=== PATIENT | male | born 1970 | race Two or more races ===

== ENCOUNTER 2019-07-04 08:46 | Inpatient (IN) | payer SELFPAY ==
[2019-07-04] VITALS (14 sets, daily range): BP systolic 78–136; BP diastolic 47–85; BMI 28.1
[~2019-07-04] VITALS: Ht 157.5 cm; Wt 63.5 kg
--- NOTE | ~2019-07-04 | HEMODYNAMI ---
PATIENT:FRANCISCO RICHARDSON MEDICAL RECORD: [id number] : 66 LOCATION:[facility] D.2301 ADMISSION DATE: 07/04/19 Generatedon:07/05/201916:18 Patient name: FRANCISCO RICHARDSON Patient #: [id number] SSN: DO B: 1970 Date of study: 07/05/2019 Page: Of Hemodynamic Procedure Report Patient Data Patient Demographics Procedure consent was obtained First Name: FRANCISCO Gender: Male Last Name: DEBRA : 1970 Patient #: [id number] Age: 48 year(s) Race: Other Additional ID: [id number] Contact details Address: [address] [place] [address] [address] State: [place] City: [place] Zip code: [address] Past Medical History Allergies: No known allergies Admission Admission Data Admission Date: 07/04/2019 Admission Time: 15:26 Room #: D.2301 Height (in.): 62 BSA: 1.71 (m2) Height (cm.): 157.48 BMI: 27.98 (kg/m2) Weight (lbs.): 153 Weight (kg.): 69.4 Procedure Procedure Types Cath Procedure Peripheral Cath Diagnostic Procedure Water Analyst Peripheral Procedures Fistula Mechanical Thrombectomy with Plasty Procedure Description Procedure Date Procedure Date: 07/05/2019 Procedure Start Time: 14:01 Procedure Staff Name Function Yuli Deleon RT Procurement Services Manager Candice Foster RN Nurse Inessa Bertrand MD Performing Physician CRISELDA DUKES RT Scrub Ignacio Olivier CRNA Additional personnel Jovany Garcia RT Monitor Procedure Data Cath Procedure Fluoroscopy Diagnostic fluoroscopy Total fluoroscopy Time: time: 18.2 min 18.2 min Diagnostic fluoroscopy Total fluoroscopy dose: 104 dose: 104 mGy mGy Diagnostic catheters Device Type Used For End Catheter Placement Merit Impress KA 2 5Fr 40CM catheter ([id number]) Procedure Medications Medication Administration Route Dosage Heparin Flush Bag added to field 2 bags (1000units/500ml NS) Lidocaine 1% added to field 20 Heparin Bolus I.V. 5000 units TPA 10 mg Heparin Bolus I.V. 2000 units Heparin Bolus I.V. 1000 units Hemodynamics Rest BSA: 1.71 (m2) O2 Consumption: Estimated: 206.16 (ml/min) O2 Consumption indexed : Estimated:120.56 (ml/min/m) Heart Rate: 73 (bpm) Snapshots Pre Cath Intra NCS Post Cath Vital Signs Time Heart Resp SPO2 etCO2 NIBP (mmHg) Rhythm Pain Sedation Rate (ipm) (%) (mmHg) Status Level (bpm) 13:55:16 71 9 100 37.5 96/48(68) NSR 0 (11) 10(A) , No pain 13:59:27 68 9 99 39.8 78/39(54) NSR 0 (11) 10(A) , No pain 14:03:31 67 9 100 48 79/36(55) NSR 0 (11) 10(A) , No pain 14:07:35 68 10 100 45 70/33(49) NSR 0 (11) 10(A) , No pain 14:11:36 69 9 99 39.8 72/33(50) NSR 0 (11) 10(A) , No pain 14:15:38 73 9 99 36 70/35(49) NSR 0 (11) 10(A) , No pain 14:17:21 78 9 100 33 75/37(53) NSR 0 (11) 10(A) , No pain 14:21:22 84 10 99 32.3 87/45(65) NSR 0 (11) 10(A) , No pain 14:25:26 86 11 100 32.3 89/49(64) NSR 0 (11) 10(A) , No pain 14:29:30 88 10 99 33 98/57(78) NSR 0 (11) 10(A) , No pain 14:33:38 88 8 99 39 101/51(75) NSR 0 (11) 10(A) , No pain 14:37:41 90 9 99 40.5 104/56(78) NSR 0 (11) 10(A) , No pain 14:41:43 92 15 85 26.2 105/82(101) NSR 0 (11) 10(A) , No pain 14:45:53 86 13 100 39.8 109/53(79) NSR 0 (11) 10(A) , No pain 14:50:05 86 16 96 1.5 112/50(82) NSR 0 (11) 10(A) , No pain 14:54:21 86 13 82 48.7 94/41(67) NSR 0 (11) 10(A) , No pain 14:58:31 88 12 94 48 88/42(68) NSR 0 (11) 10(A) , No pain 15:03:20 55 11 79 38.2 67/28(44) NSR 0 (11) 10(A) , No pain 15:04:31 48 1 68 36 44/27(38) NSR 0 (11) 10(A) , No pain 15:06:26 50 16 74 0 64/26(35) NSR 0 (11) 10(A) , No pain 15:07:28 70 13 100 46.5 62/30(47) NSR 0 (11) 10(A) , No pain 15:09:53 100 10 93 3.7 112/48(72) NSR 0 (11) 10(A) , No pain 15:13:14 101 10 100 11.2 121/51(86) NSR 0 (11) 10(A) , No pain 15:17:26 94 10 100 9.7 124/58(84) NSR 0 (11) 10(A) , No pain 15:21:38 91 9 100 8.2 122/62(95) NSR 0 (11) 10(A) , No pain 15:25:47 90 9 100 8.2 124/68(100) NSR 0 (11) 10(A) , No pain 15:28:09 90 8 99 7.5 124/65(96) NSR 0 (11) 10(A) , No pain 15:32:21 91 12 98 30 133/69(101) NSR 0 (11) 10(A) , No pain 15:36:34 90 11 98 30.7 137/69(99) NSR 0 (11) 10(A) , No pain 15:40:51 91 9 98 24 145/71(106) NSR 0 (11) 10(A) , No pain 15:45:07 91 9 99 28.5 141/75(104) NSR 0 (11) 10(A) , No pain 15:49:23 91 10 79 27.7 140/75(102) NSR 0 (11) 10(A) , No pain 15:53:39 91 10 97 32.2 149/72(119) NSR 0 (11) 10(A) , No pain 15:57:59 91 11 99 33 137/69(95) NSR 0 (11) 10(A) , No pain 16:02:13 91 10 97 33.7 144/72(105) NSR 0 (11) 10(A) , No pain 16:06:31 91 12 99 29.2 145/67(102) NSR 0 (11) 10(A) , No pain 16:10:49 91 11 98 30 143/69(94) NSR 0 (11) 10(A) , No pain 16:15:07 92 11 98 30.7 147/66(123) NSR 0 (11) 10(A) , No pain Medications Time Medication Route Dose Verified Delivered Reason Notes Eff ectiveness by by 13:50:30 Heparin Flush added 2 M J Jerzy Bertrand used for Bag to bags MD WEBER procedure (1000units/500ml field NS) 13:50:42 Lidocaine 1% added 20ml M J Jerzy Bertrand for local to vial MD WEBER anesthetic field 14:02:39 Heparin Bolus I.V. 5000 M J Long Candice Per units MD Cristian STEWART physician 14:13:07 TPA fistula 10mg M J Jerzy Bertrand MD, MD 14:44:52 Heparin Bolus I.V. 2000 M J Long Candice Per units MD Cristian STEWART physician 15:16:48 Heparin Bolus I.V. 1000 M J Long Candice Per units MD Cristian STEWART physician Procedure Log Time Note 11:59:12 Patient Height : 62 inches 12:00:41 Patient Weight : 153 lbs 12:02:42 Use device set IR Diagnostic 12:02:55 St Shekhar 6FR 5cm sheath opened to sterile field. 12:02:57 Tegaderm 4 x 4 (1626W) opened to sterile field. 12:02:58 Sterile Angiographic Pack opened to sterile field. 12:02:59 Bag Decanter (2002S) opened to sterile field. 12:03:12 Micropuncture VSI 4FR kit opened to sterile field. 12:03:25 DOC .035 wire (D37805) opened to sterile field. 13:12:06 - 13:50:30 Heparin Flush Bag (1000units/500ml NS) 2 bags added to field was administered by Inessa Bertrand MD; used for procedure; Verbal order read back and verified. 13:50:42 Lidocaine 1% 20ml vial added to field was administered by Inessa Bertrand MD; for local anesthetic; Verbal order read back and verified. 13:53:19 Time tracking: Regular hours (M-F 7:00 - 5:00) 13:53:27 Plan of Care:Hemodynamics will remain stable., Cardiac rhythm will remain stable., Comfort level will be maintained., Respiratory function will remain adequate., Patient/ family verbilizes understanding of procedure., Procedure tolerated without complication., Recovers from procedure without complications.. 13:53:50 Patient received from ICU to IR Alert and oriented. Tansferred to table in Supine position. 13:54:02 Signed procedure consent form obtained from patient. 13:54:07 ECG and BP/O2 sat monitors applied to patient. 13:54:08 Vital chart was started 13:54:09 Baseline sample Acquired. 13:54:11 Full Disclosure recording started 13:54:12 - 13:54:18 H&P Date Dictated: 07/05/2019 Within 30 days and on chart.. 13:54:22 Pre-procedure instructions explained to patient. 13:54:27 Family unavailable. 13:54:30 Patient NPO since Midnight. 13:54:38 Patient allergic to No known allergies 13:54:42 Is the patient allergic to Iodine/contrast media? No. 13:54:45 Patient diabetic? Yes. 13:54:49 If diabetic: On Metformin? No 13:54:52 - 13:54:53 ----Pre-sedation anethsthesia assessment.----see anesthesia notes for monitoring of patient during procedure 13:55:23 - 13:55:32 Left Arm area was prepped with chlora-prep and draped in sterile fashio n 13:55:33 - 13:55:40 5) <15 or on dialysis Very severe, or end stage kidney failure. 14:00:07 Physician arrived 14:00:08 --------ALL STOP TIME OUT------ 14:00:09 Final Timeout: patient, procedure, and site verified with staff and physician. All members of the team are in agreement. 14:01:09 Procedure started. 14:01:15 Local anesthetic to left arm with Lidocaine 1% by Inessa Bertrand MD.INITIAL ACCESS ONLY 14:01:40 Venous access obtained using ultrasound guidance. 14:02:39 Heparin Bolus 5000 units I.V. was administered by Candice Foster RN; Per physician; Verbal order read back and verified. 14:05:18 GLIDE WIRE ANGLE 180cm ([id number]) opened to sterile field. 14:08:13 A Merit Impress KA 2 5Fr 40CM catheter ([id number]) was advanced over the wire and used for . 14:13:07 TPA 10mg fistula was administered by Inessa Bertrand MD; ; Verbal order read back and verified. 14:15:55 St Shekhar 6FR 5cm sheath opened to sterile field. 14:44:52 Heparin Bolus 2000 units I.V. was administered by Candice Foster RN; Per physician; Verbal order read back and verified. 14:54:51 INFLATOR BasixTOUCH (EZ5909) opened to sterile field. 14:54:57 Angiojet PROXI 6Fr 90CM thrombectomy catheter opened to sterile field. 14:55:04 BILL 260 wire (C48846) opened to sterile field. 15:06:16 GLIDE CATHETER 5FR ANGLED 65cm (CG507) opened to sterile field. 15:08:24 Inflate balloon Inflation number: 1 A Evercross 6 x 4 x 135 Balloon ([id number]) was prepped and advanced across the Undefined1 , then inflated to 8 CHRIS for 0:04 (min:sec) . 15:13:13 Omar 5Fr OTW embolectomy catheter opened to sterile field. 15:16:48 Heparin Bolus 1000 units I.V. was administered by Candice Foster RN; Per physician; Verbal order read back and verified. 15:26:58 Procedure ended.(Physican Out) 15:27:16 Fluoroscopy time 18.20 minutes. 15:27:25 Fluoroscopy dose: 104 mGy 15:27:25 Flurop Dose total: 104 15:27:29 Sharps counted by scrub and verified by R.N. 15:27:40 Insertion/operative site no bleeding no hematoma. 15:27:45 Post-op/insertion site Left Fistula dressed using a 4 x 4 and Tegaderm. 16:15:23 SEE ANESTHESIA NOTE FOR POST PROCEDURE TIVA 16:15:47 Report given to ICU. 16:15:50 Patient transfered to ICU with Bed. 16:16:23 Full Disclosure recording stopped Intervention Summary Intervention Notes Time ActionType Lesion and Equipment Used Action# Pressure Duration Attributes 15:08:24 Inflate Undefined1 Evercross 6 x 4 1 8 00:04 balloon x 135 Balloon ([id number]) Device Usage Item Name Manufacture Quantity Catalog Number Hospital Part Current M inimal Lot# / Charge Number Stock Stock Serial# Code St Shekhar 6FR 5cm St Shekhar 2 [id number] 393738 741040 5 [id number] sheath [id number] Tegaderm 4 x 4 3M 1 1626W 638177 905948 496505 5 (1626W) Sterile Cardinal 1 [id number] 274012 289300 5 Angiographic Health Pack Bag Decanter Microtek 1 2001S 080601 21616 953878 5 () Medical Inc. Micropuncture VSI VASCULAR 1 7266V 592961 076913 5 VSI 4FR kit SOLUTIONS DOC .035 wire Cook Medical 1 [id number] 813965 362452 5 ([id number]) GLIDE WIRE Terumo 1 CH4980 088099 102092 649629 5 ANGLE 180cm (DH5094) Merit Impress Merit 1 [id number] 729981 378763 5 KA 2 5Fr 40CM Medical catheter (82065NP7) INFLATOR Merit 1 MT4962 624368 827451 333163 5 [id number] [facility] ([id number]) Angiojet PROXI [place] 1 855371-001 068958 325566 023945 5 6Fr 90CM Scientific thrombectomy catheter BILL 260 wire Cook Medical 1 D71774 594976 19981 263351 5 ([id number]) GLIDE CATHETER Terumo 1 CG507 094929 374204 5 5FR ANGLED 65cm (CG507) Evercross 6 x 4 Medtronic 1 [id number] 332796 824991 450161 5 x 135 Balloon ([id number]) Omar 5Fr OTW Rogers 1 [id number] 824814 554432 630947 5 embolectomy Lifesciences catheter Signature Audit [place] Stage Time Signature Unsigned Intra-Procedure 07/05/2019 Jovany 4:17:59 PM Shuffield RT (R) (CV) [facility] [address] [place] [address]
--- NOTE | ~2019-07-04 | HEMODYNAMI ---
PATIENT:FRANCISCO RICHARDSON MEDICAL RECORD: [id number] : 66 LOCATION:[facility].2106 ADMISSION DATE: 07/04/19 Generatedon:07/04/201915:34 Patient name: FRANCISCO RICHARDSON Patient #: [id number] SSN: DO B: 1970 Date of study: 07/04/2019 Page: Of Hemodynamic Procedure Report Patient Data Patient Demographics Procedure consent was obtained First Name: FRANCISCO Gender: Male Last Name: DEBRA : 1970 Patient #: [id number] Age: 48 year(s) Race: Other Additional ID: [id number] Contact details Address: [address] [place] [address] [address] State: [place] City: [place] Zip code: [address] Past Medical History Allergies: No known allergies Admission Admission Data Admission Date: 07/04/2019 Admission Time: 12:03 Room #: 2106 Procedure Procedure Types Cath Procedure Peripheral Cath Diagnostic Procedure Fistula Thrombectomy AV with Plasty Procedure Description Procedure Date Procedure Date: 07/04/2019 Procedure Start Time: 14:23 Procedure End Time: 15:33 Procedure Staff Name Function Bipin Kim MD Performing Physician CRISELDA DUKES RT Monitor Jovany Garcia RT Scrub Audra Wallis RN Nurse Procedure Data Cath Procedure Fluoroscopy Diagnostic fluoroscopy Total fluoroscopy Time: 8.4 time: 8.4 min min Contrast Material Contrast Material Type Amount (ml) Isovue 300 60 Entry Location Entry Primary Successful Side Size Upsize Upsize Entry Closure Succes sful Closure Location (Fr) 1 (Fr) 2 (Fr) Remarks Device Remarks Fistula Left 6 Fr Short Procedure Medications Medication Administration Route Dosage Versed 1 mg Fentanyl I.V. 50 mcg Lidocaine 1% Heparin Flush Bag 2 bags (1000units/500ml NS) Versed I.V. 1 mg Fentanyl I.V. 50 mcg Heparin Bolus I.V. 5000 units Benadryl I.V. 50 mg Fentanyl I.V. 25 mcg Versed I.V. 1 mg Fentanyl I.V. 25 mcg Romazicon I.V. mg Hemodynamics Rest Heart Rate: 68 (bpm) Snapshots Pre Cath Intra NCS Post Cath Vital Signs Time Heart Resp SPO2 etCO2 NIBP (mmHg) Rhythm Pain Sedation Rate (ipm) (%) (mmHg) Status Level (bpm) 13:56:34 67 13 99 36.7 129/72(104) NSR 0 (11) 10(A) , No pain 14:00:50 67 15 99 35.9 130/74(93) NSR 0 (11) 10(A) , No pain 14:05:06 67 20 98 35.2 140/70(111) NSR 0 (11) 10(A) , No pain 14:09:24 68 16 99 36.7 137/71(114) NSR 0 (11) 10(A) , No pain 14:13:38 67 11 99 35.9 130/72(107) NSR 0 (11) 10(A) , No pain 14:18:29 66 11 100 28.4 138/71(99) NSR 0 (11) 10(A) , No pain 14:22:45 65 8 99 38.1 128/71(107) NSR 0 (11) 8(A) , No pain 14:26:59 71 7 94 37.4 117/69(83) NSR 0 (11) 8(A) , No pain 14:31:09 69 6 100 20.9 107/74(86) NSR 0 (11) 8(A) , No pain 14:35:19 79 7 100 38.9 104/60(97) NSR 0 (11) 8(A) , No pain 14:39:24 69 5 98 39.6 113/67(79) NSR 0 (11) 8(A) , No pain 14:43:34 69 8 100 38.1 109/68(95) NSR 0 (11) 8(A) , No pain 14:47:40 68 5 98 35.1 117/72(107) NSR 0 (11) 8(A) , No pain 14:52:39 66 3 64 0.7 Measuring NSR 0 (11) 8(A) , No pain 14:52:49 65 4 0.7 83/46(74) NSR 0 (11) 8(A) , No pain 14:57:48 19 8.2 Measuring NSR 0 (11) 8(A) , No pain 14:57:56 14 13.4 91/61(81) NSR 0 (11) 8(A) , No pain 15:02:47 74 13 100 0 134/70(112) NSR 0 (11) 8(A) , No pain 15:07:13 93 24 71 0.7 Disturbed NSR 0 (11) 8(A) , No pain 15:11:48 76 12 100 2.2 147/64(75) NSR 0 (11) 8(A) , No pain 15:16:06 75 12 99 0 133/82(95) NSR 0 (11) 8(A) , No pain 15:21:05 0 Measuring NSR 0 (11) 8(A) , No pain 15:21:11 0 135/69(93) NSR 0 (11) 8(A) , No pain 15:25:11 0 No Cuff NSR 0 (11) 8(A) , No pain 15:29:02 0 No Cuff NSR 0 (11) 8(A) , No pain 15:33:02 0 No Cuff NSR 0 (11) 8(A) , No pain Medications Time Medication Route Dose Verified Delivered Reason Notes Effec tiveness by by 14:19:11 Versed 1 mg Bipin Zhu used for Bimal Kim RN procedure 14:19:27 Fentanyl I.V. 50 Bipin Zhu used for mcg Bimal Kim RN procedure 14:19:48 Lidocaine 1% Bipin Voss used for Judy Kim MD procedure 14:20:10 Heparin Flush 2 Bipin Voss used for Bag bags Judy Kim MD procedure (1000units/500ml NS) 14:26:55 Versed I.V. 1 mg Bipin Voss used for Judy Kim MD procedure 14:27:09 Fentanyl I.V. 50 Bipin Voss used for mcg Judy Kim MD procedure 14:31:36 Heparin Bolus I.V. 5000 Bipin Voss used for units Judy Kim MD procedure 14:35:16 Benadryl I.V. 50 mg Bipin Voss Per Judy Kim MD physician 14:45:02 Fentanyl I.V. 25 Bipin Voss used for mcg Judy Kim MD procedure 14:48:40 Versed I.V. 1 mg Bipin Voss used for Judy Kim MD procedure 14:48:48 Fentanyl I.V. 25 Bipin Voss used for mcg Judy Kim MD procedure 15:04:37 Romazicon I.V. mg uJdy Dangelo MD MD Procedure Log Time Note 13:16:10 Use device set IR Diagnostic 13:16:11 Bag Decanter (2002S) opened to sterile field. 13:16:12 Sterile Angiographic Pack opened to sterile field. 13:16:12 Tegaderm 4 x 4 (1626W) opened to sterile field. 13:16:23 DOC .035 wire (R02932) opened to sterile field. 13:16:40 MICROPUNCTURE 4FR Cook (B49700) opened to sterile field. 13:16:55 - 13:22:48 Jovany Garcia RT (R) (CV) sent for patient. Start room use. 13:22:51 Time tracking: Regular hours (M-F 7:00 - 5:00) 13:22:58 Plan of Care:Hemodynamics will remain stable., Cardiac rhythm will remain stable., Comfort level will be maintained., Respiratory function will remain adequate., Patient/ family verbilizes understanding of procedure., Procedure tolerated without complication., Recovers from procedure without complications.. 13:23:04 Patient received from ED to IR Alert and oriented. Tansferred to table in Supine position. 13:23:11 Signed procedure consent form obtained from patient. 13:23:13 Warm blankets applied, and suzi hugger turned on for patient comfort. 13:23:14 Correct patient and procedure confirmed by team. 13:23:16 ECG and BP/O2 sat monitors applied to patient. 13:23:17 - 13:23:23 H&P Date Dictated: 07/04/2019 ER History on chart.. 13:23:38 Unable to provide pre-op teaching due to educational barrier. non portuguese speaking 13:23:42 Family in waiting room. 13:23:55 Patient allergic to No known allergies 13:23:58 Is the patient allergic to Iodine/contrast media? No. 13:24:03 Patient diabetic? Yes. 13:24:07 - 13:24:10 ----Pre-sedation anethsthesia assessment.---- 13:24:14 Previous problem with sedation/anesthesia? No ? 13:24:16 Snore? No 13:24:20 Sleep apnea? No 13:24:22 Deviated septum? No 13:24:23 Opens mouth fully? Yes 13:24:25 Sticks out tongue? Yes 13:24:28 Airway obstruction? No ? 13:24:33 Dentures? No ? 13:24:35 - 13:25:33 IV patent on arrival in right forearm 13:25:56 Left Arm was prepped with chlora-prep and draped in sterile fashion. ::57 Alarms reviewed by Hernandez Cleary 13::57 Sharps counted by scrub and verified by Leyla 13:25:59 - 13:55:24 Vital chart was started :55:25 Baseline sample Acquired. :: Full Disclosure recording started 13:55:35 - 14::12 Physician arrived 14:12:12 --------ALL STOP TIME OUT------ 14:12:13 Final Timeout: patient, procedure, and site verified with staff and physician. All members of the team are in agreement. 14:15:34 Left Arm site verified by team. 14:15:42 Procedure started. 14:19:11 Versed 1 mg was administered by Audra Wallis RN; used for procedure; Verbal order read back and verified. 14::27 Fentanyl 50 mcg I.V. was administered by Audra Wallis RN; used for procedure; Verbal order read back and verified. 14:19:48 Lidocaine 1% was administered by Bipin Kim MD; used for procedure; Verbal order read back and verified. 14:20:10 Heparin Flush Bag (1000units/500ml NS) 2 bags was administered by Bipin Kim MD; used for procedure; Verbal order read back and verified. 14:23:08 Local anesthetic to left arm with Lidocaine 1% by Bipin Kim MD.INITIAL ACCESS ONLY 14:23:09 Access obtained with 4Fr micropunture. 14:23:22 A 6 Fr Short sheath was inserted into the Left Fistula 14::14 St Shekhar 6FR 5cm sheath opened to sterile field. 14::14 GLIDE WIRE ANGLE 180cm (FF7623) opened to sterile field. 14::55 Versed 1 mg I.V. was administered by Bipin Kim MD; used for procedure ; Verbal order read back and verified. 14:27:09 Fentanyl 50 mcg I.V. was administered by Bipin Kim MD; used for procedure; Verbal order read back and verified. 14:31:03 BILL 260 wire (N38041) opened to sterile field. 14:31:04 INFLATOR BasixTOUCH (LN1765) opened to sterile field. 14:31:36 Heparin Bolus 5000 units I.V. was administered by Bipin Kim MD; used for procedure; Verbal order read back and verified. 14:31:56 Inflate balloon Inflation number: 1 A Evercross 6 x 6 x 135 Balloon ([id number]) was prepped and advanced across the left fistula, then inflated. 14:34:36 GLIDE CATHETER 5FR ANGLED 65cm (CG507) opened to sterile field. 14:35:16 Benadryl 50 mg I.V. was administered by Bipin Kim MD; Per physician; Verbal order read back and verified. 14:41:18 Arrow 6Fr TREROTOLA thrombectomy opened to sterile field. 14:45:02 Fentanyl 25 mcg I.V. was administered by Bipin Kim MD; used for procedure; Verbal order read back and verified. 14:48:40 Versed 1 mg I.V. was administered by Bipin Kim MD; used for procedure ; Verbal order read back and verified. 14:48:48 Fentanyl 25 mcg I.V. was administered by Bipin Kim MD; used for procedure; Verbal order read back and verified. 15:04:37 Romazicon mg I.V. was administered by Bipin Kim MD; ; Verbal order read back and verified. 15:17:20 Procedure ended.(Physican Out) 15:21:53 Contrast amount:Isovue 300 60ml. 15:21:55 Sharps counted by scrub and verified by R.N. 15:21:57 Insertion/operative site no bleeding no hematoma. 15:22:02 Post-op/insertion site Left Fistula dressed using a 4 x 4 and Tegaderm. 15:22:14 Patient needs reinforcement of post procedure teaching. 15:22:16 Procedure and supply charges have been captured, reviewed, submitted an d are correct. 15:32:14 Fluoroscopy time 08.40 minutes. 15:32:18 Dose Area Product 262 mGy/cm. 15:32:50 Post left arm:stable, soft, clean and dry 15:33:24 Vital chart was stopped 15:33:28 Report given to ICU. 15:33:38 Patient transfered to ICU with Bed. 15:33:39 Procedure ended. 15:33:39 Full Disclosure recording stopped Intervention Summary Intervention Notes Time ActionType Lesion and Equipment Used Action# Pressure Duration Attributes 14:31:56 Inflate Undefined1 Evercross 6 x 6 1 0 00:00 balloon x 135 Balloon ([id number]) Device Usage Item Name Manufacture Quantity Catalog Number Hospital Part Current M inimal Lot# / Charge Number Stock Stock Serial# Code Bag Decanter Microtek 1 [id number] 14754 793090 5 () Medical Inc. Sterile Cardinal 1 [id number] 490316 060392 5 Angiographic Health Pack Tegaderm 4 x 4 3M 1 1626W 174115 514495 895676 5 (1626W) DOC .035 wire Cook Medical 1 G01186 230775 500778 5 (L20063) MICROPUNCTURE Cook Medical 1 S52025 424290 198385 312749 5 4FR Cook (J78741) St Shekhar 6FR 5cm St Shekhar 1 801000 023967 177021 5 [id number] sheath GLIDE WIRE Terumo 1 HD7691 554172 169223 873703 5 ANGLE 180cm (BM4997) BILL 260 wire Cook Medical 1 Z77339 547251 17955 277108 5 (G72345) INFLATOR Merit 1 CQ4280 917009 872119 267223 5 BasixTOUCH Medical (FQ2176) Evercross 6 x 6 Medtronic 1 [id number] 227066 284197 5 x 135 Balloon ([id number]) GLIDE CATHETER Terumo 1 CG507 572267 346706 5 5FR ANGLED 65cm (CG507) Arrow 6Fr Teleflex 1 [id number] 821369 947927 277612 5 TREROTOLA thrombectomy Signature Audit [place] Stage Time Signature Unsigned Intra-Procedure 07/04/2019 CRISELDA DUKES RT 3:34:43 PM (R) [place] [id number] [place] [id number]
[2019-07-04 09:45] LABS: BASOPHILS 0.1 % (0-2); EOSINOPHILS 5.7 % (0-7); HEMATOCRIT 32.5 % (42.0-54.0); HEMOGLOBIN 10.4 g/dL (13.5-17.5); IMMATURE GRANULOCYTES 0.3 % (0-5); LYMPHOCYTES 27.6 % (15-50); MCH 30.5 pg (26.0-34.0); MCV 95.3 fL (80.0-100.0); MEAN PLATELET VOLUME 8.7 fL (7.4-10.4); NEUTROPHILS 56.3 % (40-80); PLATELET COUNT 203 10x3/uL (130-400); RBC 3.41 10x6/uL (4.20-6.10); RDW 14.5 % (11.5-14.5); WBC 6.7 10x3/uL (4.8-10.8)
[2019-07-04 09:48] LABS: ANION GAP 20.5 mmol/L (8-16); CALCIUM 8.4 mg/dL (8.5-10.1); CARBON DIOXIDE 21.5 mmol/L (21.0-32.0); CREATININE - SERUM 12.5 mg/dL (0.6-1.3)
[2019-07-04 09:49] LABS: APTT 32.1 SECONDS (22.8-39.4); INR 1.01 (0.85-1.17); PROTIME 13.2 SECONDS (11.6-15.0)
[2019-07-04 09:54] LABS: ALBUMIN 3.3 g/dL (3.4-5.0); BILIRUBIN - TOTAL 0.46 mg/dL (0.2-1.3); PHOSPHOROUS 5.8 mg/dL (2.5-4.9); PROTEIN - SERUM 9.2 g/dL (6.4-8.2)
--- NOTE | 2019-07-04 15:30 | NUR ---
PT ARRIVED TO UNIT ON BED. ON VENTI MASK AT 15L. ATTACHED TO ICU MONITOR. VSS. PT SPEAKS ONLY [place]. IS AWAKE. FOLLOWS COMMANDS. WILL CONTINUE TO MONITOR
--- NOTE | 2019-07-04 16:10 | NUR ---
SPOKE WITH PT SON AND . OBTAINED CONSENT FOR A TRIALYSIS CATHETER AND BLOOD TRANSFUSION IF NECESSARY. WILL CONTINUE TO MONITOR
--- NOTE | 2019-07-04 16:58 | NUR ---
DR ROWAN IN ROOM. PREPARING TO PLACE TRIALYSIS CATHETER. WILL CONTINUE TO MONITOR
--- NOTE | 2019-07-04 16:58 | NUR ---
DR JUNIOR CALLED. UPDATE GIVEN. WILL CONTINUE TO MONITOR
--- NOTE | 2019-07-04 19:00 | NUR ---
SUPINE IN BED. NURSE AT BEDSIDE, DIALYSIS IN PROGRESS. WILL CONTINUE TO MONITOR.
--- NOTE | 2019-07-04 21:35 | NUR ---
DIALYSIS NURSE STATED SHE FINISHED DIALYSIS EARLY DUE TO LOW BP AND LOW RESPIRATIONS. VS CURRENTLY STABLE. SPO2 100% ON 8L. PT ALERT AND ORIENTED. GOWN SOILED WITH BLOOD. CHANGED. NO FURTHER NEEDS VOICED AT THIS TIME. CL IN REACH, BED IN LOW POSISTION, WILL CONTINUE TO MONITOR.
[2019-07-05] VITALS (22 sets, daily range): BP systolic 80–142; BP diastolic 47–91
--- NOTE | 2019-07-05 | NUR ---
UP WITH STANDBY ASSIST TO BSC. PT DOES NOT MAKE EYE CONTACT AND FEELS FOR OBJECTS WITHOUT LOOKING DIRECTLY AT THEM. ASKED PT IF HE IS ABLE TO SEE. PT REPLIED, "WHAT?" REPLIED, "OJOS?" PT RESPONDED, "NO, NOT GOOD."
--- NOTE | 2019-07-05 01:29 | NUR ---
SUPINE IN BED, SPONTANEOUS EYE OPENING UPON VERBAL STIMULATION. VS STABLE. NO NEEDS VOICED AT THIS TIME, WILL CONTINUE TO MONITOR.
--- NOTE | 2019-07-05 03:00 | NUR ---
SUPINE IN BED, RESPIRATIONS EVEN/NONLABORED. VS STABLE, CTM.
[2019-07-05 04:29] LABS: BASOPHILS 0.5 % (0-2); EOSINOPHILS 3.3 % (0-7); HEMATOCRIT 31.5 % (42.0-54.0); HEMOGLOBIN 9.9 g/dL (13.5-17.5); IMMATURE GRANULOCYTES 0.2 % (0-5); LYMPHOCYTES 25.7 % (15-50); MCH 30.3 pg (26.0-34.0); MCHC 31.4 g/dL (31.0-37.0); MCV 96.3 fL (80.0-100.0); MEAN PLATELET VOLUME 9.1 fL (7.4-10.4); MONOCYTES 8.7 % (2-11); NEUTROPHILS 61.6 % (40-80); PLATELET COUNT 186 10x3/uL (130-400); RBC 3.27 10x6/uL (4.20-6.10); RDW 14.7 % (11.5-14.5); WBC 6.5 10x3/uL (4.8-10.8)
[2019-07-05 04:45] LABS: ALBUMIN 3.1 g/dL (3.4-5.0); ANION GAP 19.5 mmol/L (8-16); BILIRUBIN - TOTAL 0.45 mg/dL (0.2-1.3); CALCIUM 7.9 mg/dL (8.5-10.1); CARBON DIOXIDE 21.9 mmol/L (21.0-32.0); CREATININE - SERUM 10.6 mg/dL (0.6-1.3); POTASSIUM - SERUM 5.4 mmol/L (3.5-5.1); PROTEIN - SERUM 8.7 g/dL (6.4-8.2)
--- NOTE | 2019-07-05 05:00 | NUR ---
SUPINE IN BED, CHEST RISE NOTED, RESPIRATIONS EVEN/NONLABORED. VS STABLE, NO S/SX OF DISTRESS, CONTINUE TO MONITOR.
--- NOTE | 2019-07-05 06:30 | NUR ---
I have reviewed this patient and I concur with the Shift Assessment completed by the Licensed Practical Nurse today this shift.
--- NOTE | 2019-07-05 07:00 | NUR ---
PT REPORT RECEIVED FROM COB SAWYER NURSE. NO ACUTE SIGNS OF DISTRESS NOTED. SHIFT ASSESSMENT COMPLETED. NO COMPLAINTS AT THIS TIME. ASSISTED TO BEDSIDE COMMODE. SMALL BM. ASSISTED BACK TO BED. WILL CONTINUE TO MONITOR
--- NOTE | 2019-07-05 08:50 | NUR ---
PT RESTING IN BED. PULSE OX DROPPED TO MID 80'S. WOKE PT UP AND PLACED NC AT 4L. O2 SATS REBOUNDED TO 96%.
--- NOTE | 2019-07-05 09:17 | OP ---
PATIENT NAME: FRANCISCO RICHARDSON MEDICAL RECORD: [id number] :66 LOCATION:[facility] D.2301 ADMISSION DATE:07/04/19 SURGEON: CHAUNCEY ROWAN MD DATE OF OPERATION: 07/04/2019 SURGEON: Chauncey Rowan MD PREOPERATIVE DIAGNOSES: End-stage renal disease, clotted left upper extremity AV fistula, hyperkalemia, and hyperphosphatemia. POSTOPERATIVE DIAGNOSES: End-stage renal disease, clotted left upper extremity AV fistula, hyperkalemia, and hyperphosphatemia. PROCEDURE PERFORMED: 1. Attempted ultrasound-guided right internal jugular venous access 2. Ultrasound-guided right femoral vein central venous access. ANESTHESIA: Local. COMPLICATIONS: None. SPECIMENS: None. Case was clean. OPERATIVE COURSE: After verbal consent was obtained, the right neck was prepped and draped in typical sterile fashion. Time was taken to confirm the correct patient and procedure. The ultrasound was used to identify the right internal jugular vein and common carotid artery. The vein was cannulated under ultrasound guidance. The vein was quite small on ultrasound that was cannulated with adequate blood return. A wire was attempted to be passed. The wire would not thread beyond 10-15 cm. The wire was removed. An 0.035 Glidewire was placed and the catheter advanced. Again, the Glidewire met significant resistance around approximately 10 cm. The jugular vein was cannulated 2 additional times under ultrasound guidance, both subsequent attempts were positive for blood return with inability to thread the wire beyond 8-10 cm due to significant stenosis or stricture. At this time, we decided to abandon the procedure in the right neck. The right groin was prepped and draped in typical sterile fashion. The right femoral vein and right femoral were identified. Again, noted femoral vein was very small in diameter. It was cannulated. Local anesthetic was again injected at this time in the right groin. Under ultrasound guidance, the right femoral vein was cannulated, blood was aspirated. A wire was placed in a standard Seldinger fashion and advanced. The needle was removed. Skin incision was made with 11-blade scalpel. The tract was serially dilated using the dilators and the Trialysis kit. After the tract was dilated, a 13-Libyan catheter was placed over the wire in a standard Seldinger fashion. All 3 ports were aspirated with blood and flushed with normal saline. A Biopatch was placed. The catheter was secured to the skin using 3-0 nylon suture and a sterile Tegaderm dressing. At the end of procedure, all needle and instrument counts were correct. No complications occurred. The patient tolerated the procedure well. TRANSINT:[id number] Voice Confirmation ID: [id number] DOCUMENT ID: [id number] OPERATIVE REPORT [id number] FRANCISCO RICHARDSON,CHAUNCEY Charles MD at 0917 CC: [id number] DICTATION DATE: 07/04/191821 MEASURER MACHINE: 07/04/192127 ADM IN [facility] [address] [id number]
--- NOTE | 2019-07-05 10:50 | NUR ---
DR MCKEON IN ROOM. UPDATE GIVEN. WILL CONTINUE TO MONITOR
--- NOTE | 2019-07-05 13:33 | NUR ---
SPECIALS IN ROOM. WHEELED PT OUT TO PERFORM PROCEDURE.
--- NOTE | 2019-07-05 16:53 | NUR ---
SPOKE WITH [employer]INA NEPHROLOGY CONSTRUCTION PIT WORKER. SHE STATED THAT IF THE FISTULA IS OPEN TO GO AHEAD AND DO DIAYLYSIS THROUGH IT. WILL NOTIFY DIALYSIS NURSE THAT THAT IS THE PLAN. WILL CONTINUE TO MONITOR
--- NOTE | 2019-07-05 18:00 | NUR ---
ARRIVED TO UNIT AT THIS TIME. ALERT AND ORIENTED. ON ROOM AIR. CONNECTED TO PIPER HELPER. DENIES ANY NEEDS AT THIS TIME.
--- NOTE | 2019-07-05 18:13 | MORECARE ---
CASE MANAGEMENT DISCHARGE SUMMARY PATIENT: FRANCISCO RICHARDSON UNIT: [id number] ADM DATE: 07/04/19 AGE: 48 : 66 SEX: M ROOM/BED: D.2301 AUTHOR: LALITA KEYES PHYSICIAN: REFERRING PHYSICIAN: QUITA MCKEON MD DATE OF SERVICE: 07/05/19 Discharge Plan Patient Name: FRANCISCO RICHARDSON Facility: [facility]:[place] : 1970 Planned Disposition: Anticipated Discharge Date: Discharge Date: Expected LOS: Initial Reviewer: [email or web address] Initial Review Date: 07/04/2019 Generated: 07/05/19 7:12 pm DCP- Discharge Planning Updated by [email or web address]: Nancy Gregory on 07/04/19 3:[address] HD @[facility] Jordan Barron. Patient Name: FRANCISCO RICHARDSON Page 85283 at 1813 All edits/amendments must be made on the electronic document DICTATION DATE: 07/05/191811 LABORATORY INSPECTOR: JESUS 07/05/191811 RPT#: [id number] DC DATE: STATUS: ADM IN [facility] [address] [place] [address] END OF REPORT
--- NOTE | 2019-07-05 18:15 | NUR ---
GAVE REPORT TO CASEY IN CVICU. TRANSFERRED PT UP TO CV.
--- NOTE | 2019-07-05 18:19 | MORECARE ---
CASE MANAGEMENT DISCHARGE SUMMARY PATIENT: FRANCISCO RICHARDSON UNIT: [id number] ADM DATE: 07/04/19 AGE: 48 : 66 SEX: M ROOM/BED: D.2301 AUTHOR: LALITA KEYES PHYSICIAN: REFERRING PHYSICIAN: QUITA MCKEON MD DATE OF SERVICE: 07/05/19 Discharge Plan Patient Name: FRANCISCO RICHARDSON Facility: [facility]:[place] : 1970 Planned Disposition: Anticipated Discharge Date: Discharge Date: Expected LOS: Initial Reviewer: [email or web address] Initial Review Date: 07/04/2019 Generated: 07/05/19 7:19 pm Comments DCP- Discharge Planning Updated by [email or web address]: Emilia Bright on 07/05/19 5:[address] CM was unable to met with patient for discharge planning d/t him being in procedure / surgery. CM will continue to follow and assist as needed with discharge planning / needs. DCP- Discharge Planning Updated by [email or web address]: Nancy Gregory on 07/04/19 3:[address] HD @[facility], Sat. DCPIA - Discharge Planning Initial Assessment Updated by [email or web address]: Emilia Bright on 07/05/19 6:14 pm * Is the patient Alert and Oriented? Yes * How many steps to enter\exit or inside your home? Last DP export: 07/05/19 5:13 p Patient Name: FRANCISCO RICHARDSON Page 42902 at 1819 All edits/amendments must be made on the electronic document DICTATION DATE: 07/05/191818 PARTS SALES MANAGER: JESUS 07/05/191818 RPT#: [id number] DC DATE: STATUS: ADM IN [facility] [address] [place] [address] END OF REPORT
--- NOTE | 2019-07-05 19:00 | NUR ---
REPORT RECEIVED FROM THE OFF GOING RN. PT CURRENTLY GETTING DIALYSIS AND TOLERATING WELL. PT SPEAK VERY LITTLE TO NO [place]. ABLE TO COMMUNICATE VIA TRANSLATION PHONE. PT BLIND. PT DENIES PAIN AT THIS TIME. VSS. CALL LIGHT IN REACH. WILL CONT POC.
--- NOTE | 2019-07-05 23:00 | NUR ---
DIALYSIS COMPLETED. DIALYSIS NURSE STATED THAT SHE REMOVED ABOUT 1L FROM THE PT. WILL CONT POC.
[2019-07-06] VITALS (10 sets, daily range): BP systolic 94–126; BP diastolic 37–58; Ht 157.5 cm; Wt 63.5 kg
--- NOTE | 2019-07-06 00:26 | NUR ---
PT REQUESTED SIRISHA (BATHROOM). EXPLAINED, USING GOOGLE TRANSLATION, THAT HE HAD TO USE A BEDPAN BECAUSE OF THE CENTRAL LINE IN HIS GROIN AND HE WAS COMPLIANT. PT DID NOT USE THE BATHROOM BUT STATED THAT HE WAS OK NOW. PT EXPELLED GAS. CALL LIGHT IN REACH. WILL CONT POC.
--- NOTE | 2019-07-06 03:15 | NUR ---
pt given a bed bath and full linen change. pt tolerated well. vss. call light in reach. will cont poc.
--- NOTE | 2019-07-06 05:17 | NUR ---
TRIALYSIS LINE FLUSHES WELL BUT UNABLE TO ASPIRATE BLOOD. BLOOD SAMPLE TAKEN FROM THE RIGHT AC IV. FLUSHES WELL AND ASPIRATES WELL. IV FLUSHED AND SL. WILL CONT POC.
[2019-07-06 05:28] LABS: BASOPHILS 0.6 % (0-2); EOSINOPHILS 3.1 % (0-7); HEMOGLOBIN 8.4 g/dL (13.5-17.5); IMMATURE GRANULOCYTES 0.2 % (0-5); LYMPHOCYTES 21.7 % (15-50); MCH 29.9 pg (26.0-34.0); MCHC 31.1 g/dL (31.0-37.0); MCV 96.1 fL (80.0-100.0); MEAN PLATELET VOLUME 9.1 fL (7.4-10.4); MONOCYTES 13.3 % (2-11); NEUTROPHILS 61.1 % (40-80); PLATELET COUNT 162 10x3/uL (130-400); RBC 2.81 10x6/uL (4.20-6.10); RDW 14.5 % (11.5-14.5); WBC 5.1 10x3/uL (4.8-10.8)
[2019-07-06 05:59] LABS: ALBUMIN 2.8 g/dL (3.4-5.0); BILIRUBIN - TOTAL 0.47 mg/dL (0.2-1.3); CALCIUM 7.9 mg/dL (8.5-10.1); PHOSPHOROUS 5.6 mg/dL (2.5-4.9)
[2019-07-06 06:19] LABS: MAGNESIUM - SERUM 2.2 mg/dL (1.8-2.4)
[2019-07-06 06:20] LABS: ANION GAP 13.7 mmol/L (8-16); CARBON DIOXIDE 27.5 mmol/L (21.0-32.0); CREATININE - SERUM 6.3 mg/dL (0.6-1.3); POTASSIUM - SERUM 4.2 mmol/L (3.5-5.1)
--- NOTE | 2019-07-06 07:58 | NUR ---
DR. MCKEON AT BEDSIDE. OKAY TO SEND PT HOME.
--- NOTE | 2019-07-06 09:03 | NUR ---
TRIALYSIS CATH TO RIGHT GROIN DC'D AT THIS TIME PER ORDERS. PT WILL BE DISCHARGING HOME.
--- NOTE | 2019-07-06 09:26 | NUR ---
CALL PLACED TO FAMILY TO NOTIFY THAT PT IS BEING DISCHARGE. WILL CALL UNIT WHEN THEY ARRIVE TO ELECTRICAL WIRING LINEMAN PATIENT.
--- NOTE | 2019-07-06 10:23 | NUR ---
PT DISCHARGED. DISCHARGE INSTRUCTIONS REVIEWED WITH PATIENT AND SPOUSE. TRANSFERRED IN WHEELCHAIR TO PERSONAL VEHICLE. NO BELOGINS.
--- NOTE | 2019-07-06 18:33 | MORECARE ---
CASE MANAGEMENT DISCHARGE SUMMARY PATIENT: FRANCISCO RICHARDSON UNIT: [id number] ADM DATE: 07/04/19 AGE: 48 : 66 SEX: M ROOM/BED: [facility] AUTHOR: LALITA KEYES PHYSICIAN: REFERRING PHYSICIAN: QUITA MCKEON MD DATE OF SERVICE: 07/06/19 Discharge Plan Patient Name: FRANCISCO RICHARDSON Facility: [facility]:[place] : 1970 Planned Disposition: Anticipated Discharge Date: Discharge Date: 07/06/2019 Expected LOS: Initial Reviewer: [email or web address] Initial Review Date: 07/04/2019 Generated: 07/06/19 7:32 pm Comments DCP- Discharge Planning Updated by [email or web address]: Emilia Bright on 07/05/19 5:[address] CM was unable to met with patient for discharge planning d/t him being in procedure / surgery. CM will continue to follow and assist as needed with discharge planning / needs. DCP- Discharge Planning Updated by [email or web address]: Nancy Gregory on 07/04/19 3:[address] HD @[facility] [place] [facility], Sat. DCPIA - Discharge Planning Initial Assessment Updated by [email or web address]: Emilia Bright on 07/05/19 6:14 pm * Is the patient Alert and Oriented? Yes * How many steps to enter\exit or inside your home? Last DP export: 07/05/19 5:19 p Patient Name: FRANCISCO RICHARDSON Page 76220 at 1833 All edits/amendments must be made on the electronic document DICTATION DATE: 07/06/191831 CULTURAL ANTHROPOLOGY PROFESSOR: JESUS 07/06/191831 RPT#: [id number] DC DATE:07/06/19 STATUS: DIS IN [facility] [address] [place] [address] END OF REPORT
== END 2019-07-06 10:24 | disposition home or self-care (01) | DRG 252 ==
LOC: D.ER 08:46 → D.M2 12:03 → OBSVTIME 12:32 → D.ICU 15:26 → D.M2 15:26 → D.ICU 15:52 → D.CVICU 07-05 18:24
PROVIDERS: Emergency Medicine; General Practice; ADMIT Internal Medicine Nephrology; ATTEND Internal Medicine Nephrology
PROC: B51W1ZZ Fluoroscopy of Dialysis Shunt/Fistula using Low Osmolar Contrast (ICD-10-PCS; 2019-07-04)
PROC: 5A1D70Z Performance of Urinary Filtration, Intermittent, Less than 6 Hours Per Day (ICD-10-PCS; 2019-07-04)
PROC: 05CF3ZZ Extirpation of Matter from Left Cephalic Vein, Percutaneous Approach (ICD-10-PCS; principal; 2019-07-04 14:06)
PROC: 05CF3ZZ Extirpation of Matter from Left Cephalic Vein, Percutaneous Approach (ICD-10-PCS; 2019-07-05)
PROC: 05WY3KZ Revision of Nonautologous Tissue Substitute in Upper Vein, Percutaneous Approach (ICD-10-PCS; 2019-07-05)
PROC: 3E03317 Introduction of Other Thrombolytic into Peripheral Vein, Percutaneous Approach (ICD-10-PCS; 2019-07-05)
DX: T82.868A Thrombosis due to vascular prosthetic devices, implants and grafts, initial encounter (principal); N18.6 End stage renal disease; I12.0 Hypertensive chronic kidney disease with stage 5 chronic kidney disease or end stage renal disease; N25.81 Secondary hyperparathyroidism of renal origin; Y83.9 Surgical procedure, unspecified as the cause of abnormal reaction of the patient, or of later complication, without mention of misadventure at the time of the procedure; Z99.2 Dependence on renal dialysis; E87.5 Hyperkalemia

== ENCOUNTER 2019-07-19 07:45 | Inpatient (IN) | payer SELFPAY ==
[~2019-07-19] VITALS: Ht 157.5 cm; Wt 60.9 kg
[2019-07-19 08:06] VITALS: BP 147/71
[2019-07-19 08:39] LABS: BASOPHILS 0.5 % (0-2); EOSINOPHILS 7.5 % (0-7); HEMATOCRIT 30.2 % (42.0-54.0); HEMOGLOBIN 9.4 g/dL (13.5-17.5); IMMATURE GRANULOCYTES 0.1 % (0-5); LYMPHOCYTES 26.8 % (15-50); MCH 30.8 pg (26.0-34.0); MCHC 31.1 g/dL (31.0-37.0); MONOCYTES 11.5 % (2-11); NEUTROPHILS 53.6 % (40-80); RBC 3.05 10x6/uL (4.20-6.10); RDW 14.8 % (11.5-14.5); WBC 7.5 10x3/uL (4.8-10.8)
[2019-07-19 08:49] LABS: ANION GAP 21.3 mmol/L (8-16); CALCIUM 9.1 mg/dL (8.5-10.1); CARBON DIOXIDE 21.1 mmol/L (21.0-32.0); CREATININE - SERUM 9.2 mg/dL (0.6-1.3); POTASSIUM - SERUM 5.4 mmol/L (3.5-5.1)
[2019-07-19 08:55] LABS: ALBUMIN 3.5 g/dL (3.4-5.0); BILIRUBIN - TOTAL 0.51 mg/dL (0.2-1.3); MAGNESIUM - SERUM 2.6 mg/dL (1.8-2.4); PLATELET COUNT 301 10x3/uL (130-400); PROTEIN - SERUM 9.7 g/dL (6.4-8.2)
--- NOTE | 2019-07-19 09:08 | NUR ---
CALLED MED II TO GIVE REPORT. NURSE UNAVAILABLE AT THIS TIME.
[2019-07-19 09:28] VITALS: BP 142/65
[2019-07-19 10:30] LABS: INR 0.99 (0.85-1.17)
--- NOTE | 2019-07-19 10:56 | NUR ---
PT TO ROOM FROM ER. LEFT FISTULA NOT WORKING. CONSENTS FOR PROCEDURE SIGNED, EKG ON CHART. NPO FOR NOW.
[2019-07-19 11:28] VITALS: BP 109/51
[2019-07-19 13:28] VITALS: BP 127/97; BMI 24.4
--- NOTE | 2019-07-19 17:14 | NUR ---
PT TO ROOM FROM PACU ON BED. TO BATHROOM FOR BM ON ARRIVAL. AWAKE AND ALERT. DINNER TRAY ORDERED. HEMESPLIT DRESSING CLEAN AND DRY.
--- NOTE | 2019-07-19 19:37 | NUR ---
EVENING ROUNDS COMPLETE. PT LAYING IN BED. NO SIGNS OF DISTRESS. PT REQUEST FOR COFFEE, PROVIDED. PT DENIES ANY OTHER NEEDS AT THIS TIME, NO C/O PAIN. CL IN REACH, BED IN LOWEST POSITION.
[2019-07-19 21:44] VITALS: BP 98/41
[2019-07-20 00:15] VITALS: BP 120/55
[2019-07-20 05:08] VITALS: BP 111/58
[2019-07-20 06:39] LABS: BASOPHILS 0.3 % (0-2); EOSINOPHILS 5.6 % (0-7); HEMATOCRIT 25.1 % (42.0-54.0); HEMOGLOBIN 7.7 g/dL (13.5-17.5); IMMATURE GRANULOCYTES 0.2 % (0-5); LYMPHOCYTES 22.1 % (15-50); MCH 30.3 pg (26.0-34.0); MCHC 30.7 g/dL (31.0-37.0); MCV 98.8 fL (80.0-100.0); MEAN PLATELET VOLUME 8.6 fL (7.4-10.4); MONOCYTES 8.7 % (2-11); NEUTROPHILS 63.1 % (40-80); RBC 2.54 10x6/uL (4.20-6.10); WBC 6.6 10x3/uL (4.8-10.8)
[2019-07-20 06:44] LABS: PLATELET COUNT 229 10x3/uL (130-400)
[2019-07-20 06:57] LABS: ANION GAP 20.2 mmol/L (8-16); CALCIUM 7.9 mg/dL (8.5-10.1); CARBON DIOXIDE 19.5 mmol/L (21.0-32.0); CREATININE - SERUM 10.3 mg/dL (0.6-1.3); POTASSIUM - SERUM 5.7 mmol/L (3.5-5.1)
[2019-07-20 08:53] LABS: INR 1.06 (0.85-1.17); PROTIME 13.7 SECONDS (11.6-15.0)
--- NOTE | 2019-07-20 09:33 | MORECARE ---
CASE MANAGEMENT DISCHARGE SUMMARY PATIENT: FRANCISCO ARENAS UNIT: [id number] ADM DATE: 07/19/19 AGE: 48 : 66 SEX: M ROOM/BED: D.2138 AUTHOR: LALITA KEYES PHYSICIAN: REFERRING PHYSICIAN: KYLE GATICA MD DATE OF SERVICE: 07/20/19 Discharge Plan Patient Name: FRANCISCO ARENAS Facility: [facility]:[place] : 1970 Planned Disposition: Home Anticipated Discharge Date: 07/20/19 Discharge Date: Expected LOS: 1 Initial Reviewer: [email or web address] Initial Review Date: 07/19/2019 Generated: 07/20/19 10:32 am Comments DCP- Discharge Planning Updated by [email or web address]: Nancy Gregory on 07/20/19 8:[address] CM met with patient to discuss dc needs/plans. PCP: [facility]. Pharmacy: [facility]. Patient states he lives with his and children. States that he lost his vision 5 years ago. Patient requires assistance with bathing, dressing and medication management. DME: EVAN wahl, Nimesh. Emergency contact: Ino Nava (son) [phone], Bozena Nava (spouse) [phone]. Patient dialysis at Dialysis /. Transportation is via his family or a taxi. Denies need for HHS, Rehab or SNF. Patient has been hospitalized within past 30 days. Transportation home will be provided his son or . No other needs voiced. Patient Name: FRANCISCO ARENAS Page 74726 at 0933 All edits/amendments must be made on the electronic document DICTATION DATE: 07/20/19931 ROOFER HELPER: JESUS 07/20/19931 RPT#: [id number] DC DATE: STATUS: ADM IN [facility] [address] [place] [address] END OF REPORT
--- NOTE | 2019-07-20 09:52 | MORECARE ---
CASE MANAGEMENT DISCHARGE SUMMARY PATIENT: FRANCISCO ARENAS UNIT: [id number] ADM DATE: 07/19/19 AGE: 48 : 66 SEX: M ROOM/BED: D.2138 AUTHOR: LALITA KEYES PHYSICIAN: REFERRING PHYSICIAN: KYLE GATICA MD DATE OF SERVICE: 07/20/19 Discharge Plan Patient Name: FRANCISCO ARENAS Facility: [facility]:[place] : 1970 Planned Disposition: Home Anticipated Discharge Date: 07/20/19 Discharge Date: Expected LOS: 1 Initial Reviewer: [email or web address] Initial Review Date: 07/19/2019 Generated: 07/20/19 10:52 am Comments DCP- Discharge Planning Updated by [email or web address]: Nancy Gregory on 07/20/19 8:[address] CM met with patient to discuss dc needs/plans. PCP: [facility]. Pharmacy: [facility]. Patient states he lives with his and children. States that he lost his vision 5 years ago. Patient requires assistance with bathing, dressing and medication management. DME: EVAN wahl, Nimesh. Emergency contact: Ino Naav (son) [phone], Bozena Nava (spouse) [phone]. Patient dialysis at Dialysis /. Transportation is via his family or a taxi. Denies need for HHS, Rehab or SNF. Patient has been hospitalized within past 30 days. Transportation home will be provided his son or . No other needs voiced. Last DP export: 07/20/19 8:33 am Patient Name: FRANCISCO ARENAS Page 35460 at 0952 All edits/amendments must be made on the electronic document DICTATION DATE: 07/20/19951 EXECUTIVE SOUS CHEF: JESUS 07/20/19951 RPT#: [id number] DC DATE: STATUS: ADM IN [facility] [address] [place] [address] END OF REPORT
--- NOTE | 2019-07-20 09:59 | MORECARE ---
CASE MANAGEMENT DISCHARGE SUMMARY PATIENT: FRANCISCO ARENAS UNIT: [id number] ADM DATE: 07/19/19 AGE: 48 : 66 SEX: M ROOM/BED: D.8028 AUTHOR: STEPHY,DOC PHYSICIAN: REFERRING PHYSICIAN: KYLE GATICA MD DATE OF SERVICE: 07/20/19 Discharge Plan Patient Name: FRANCISCO ARENAS Facility: [facility]:[place] : 1970 Planned Disposition: Home Anticipated Discharge Date: 07/20/19 Discharge Date: Expected LOS: 1 Initial Reviewer: [email or web address] Initial Review Date: 07/19/2019 Generated: 07/20/19 10:58 am Comments DCP- Discharge Planning Updated by [email or web address]: Nancy Gregory on 07/20/19 8:[address] CM met with patient to discuss dc needs/plans. PCP: [facility]. Pharmacy: [facility]. Patient states he lives with his and children. States that he lost his vision 5 years ago. Patient requires assistance with bathing, dressing and medication management. DME: canpernell, BSC, Walker. Emergency contact: Ino Nava (son) [phone], Bozena Nava (spouse) [phone]. Patient dialysis at Dialysis /. Transportation is via his family or a taxi. Denies need for HHS, Rehab or SNF. Patient has been hospitalized within past 30 days. Transportation home will be provided his son or . No other needs voiced. DCPIA - Discharge Planning Initial Assessment Updated by [email or web address]: Nancy Gregory on 07/20/19 9:55 am * Is the patient Alert and Oriented? Yes * PCP [facility] * Pharmacy [facility] * Preadmission Environment Home with Family * ADLs Partial Dependent * Partial ADLs (Assistance needed) Ambulation Bathing Medication Management * Equipment Bedside Commode Cane Walker * Other Equipment NA * List name and contact numbers for known caregivers / representatives who currently or will assist patient after discharge: Ino Nava (son) [phone] Bozena Nava [phone] * Verbal permission to speak to the caregivers and representatives has been obtained from the patient. Yes * Community resources currently utilized None * Please name any agencies selected above. [facility] * Additional services required to return to the preadmission environment? No * Can the patient safely return to the preadmission environment? Yes * Has this patient been hospitalized within the prior 30 days at any hospital? Yes Last DP export: 07/20/19 8:52 am Patient Name: FRANCISCO ARENAS Page 00803 at 0959 All edits/amendments must be made on the electronic document DICTATION DATE: 07/20/19957 TWILL CUTTER: JESUS 07/20/19957 RPT#: [id number] DC DATE: STATUS: ADM IN [facility] [address] [place] [address] END OF REPORT
[2019-07-20 13:50] VITALS: Ht 157.5 cm; Wt 60.9 kg
[2019-07-20 16:00] VITALS: BP 146/65
--- NOTE | 2019-07-20 16:50 | MORECARE ---
CASE MANAGEMENT DISCHARGE SUMMARY PATIENT: FRANCISCO ARENAS UNIT: [id number] ADM DATE: 07/19/19 AGE: 48 : 66 SEX: M ROOM/BED: D.2138 AUTHOR: STEPHY,DOC PHYSICIAN: REFERRING PHYSICIAN: KYLE GATICA MD DATE OF SERVICE: 07/20/19 Discharge Plan Patient Name: FRANCISCO ARENAS Facility: [facility]:[place] : 1970 Planned Disposition: Home Anticipated Discharge Date: 07/20/19 Discharge Date: Expected LOS: 1 Initial Reviewer: [email or web address] Initial Review Date: 07/19/2019 Generated: 07/20/19 5:50 pm DCP- Discharge Planning Updated by [email or web address]: Nancy Gregory on 07/20/19 8:[address] CM met with patient to discuss dc needs/plans. PCP: [facility]. Pharmacy: [facility]. Patient states he lives with his and children. States that he lost his vision 5 years ago. Patient requires assistance with bathing, dressing and medication management. DME: maryuri, BSC, Walker. Emergency contact: Ino Nava (son) [phone], Bozena Nava (spouse) [phone]. Patient dialysis at Dialysis /. Transportation is via his family or a taxi. Denies need for HHS, Rehab or SNF. Patient has been hospitalized within past 30 days. Transportation home will be provided his son or . No other needs voiced. DCPIA - Discharge Planning Initial Assessment Updated by [email or web address]: Nancy Gregory on 07/20/19 9:55 am * Is the patient Alert and Oriented? Yes * PCP [facility] * Pharmacy [facility] * Preadmission Environment Home with Family * ADLs Partial Dependent * Partial ADLs (Assistance needed) Ambulation Bathing Medication Management * Equipment Bedside Commode Cane Walker * Other Equipment NA * List name and contact numbers for known caregivers / representatives who currently or will assist patient after discharge: Ino Nava (son) [phone] Bozena Nava [phone] * Verbal permission to speak to the caregivers and representatives has been obtained from the patient. Yes * Community resources currently utilized None * Please name any agencies selected above. [facility] * Additional services required to return to the preadmission environment? No * Can the patient safely return to the preadmission environment? Yes * Has this patient been hospitalized within the prior 30 days at any hospital? Yes Last DP export: 07/20/19 8:59 am Patient Name: FRANCISCO ARENAS Page 08759 at 1650 All edits/amendments must be made on the electronic document DICTATION DATE: 07/20/191649 RESOURCE PARAPROFESSIONAL: JESUS 07/20/191649 RPT#: [id number] DC DATE: STATUS: ADM IN [facility] [address] [place] [address] END OF REPORT
[2019-07-20 20:00] VITALS: BP 110/59
[2019-07-21 04:00] VITALS: BP 101/53; BP 112/61
[2019-07-21 06:20] LABS: BASOPHILS 0.6 % (0-2); EOSINOPHILS 8.6 % (0-7); HEMATOCRIT 23.5 % (42.0-54.0); IMMATURE GRANULOCYTES 0.2 % (0-5); LYMPHOCYTES 27.1 % (15-50); MCH 30.7 pg (26.0-34.0); MCHC 31.1 g/dL (31.0-37.0); MCV 98.7 fL (80.0-100.0); MEAN PLATELET VOLUME 8.8 fL (7.4-10.4); NEUTROPHILS 50.5 % (40-80); PLATELET COUNT 207 10x3/uL (130-400); RBC 2.38 10x6/uL (4.20-6.10); RDW 15.1 % (11.5-14.5); WBC 5.1 10x3/uL (4.8-10.8)
[2019-07-21 06:41] LABS: CALCIUM 8.1 mg/dL (8.5-10.1); HEMOGLOBIN 7.3 g/dL (13.5-17.5); PHOSPHOROUS 6.7 mg/dL (2.5-4.9)
[2019-07-21 06:43] LABS: ANION GAP 14.6 mmol/L (8-16); CARBON DIOXIDE 26.8 mmol/L (21.0-32.0); CREATININE - SERUM 6.7 mg/dL (0.6-1.3); POTASSIUM - SERUM 4.4 mmol/L (3.5-5.1)
[2019-07-21 09:23] VITALS: BP 129/61
[2019-07-21 12:00] VITALS: BP 130/79
--- NOTE | 2019-07-21 13:40 | NUR ---
I have reviewed this patient and I concur with the Shift Assessment completed by the Licensed Practical Nurse today this shift.
--- NOTE | 2019-07-21 19:09 | NUR ---
PAGED RENAL ABOUT PT DISCHARGE, IN REGARD TO HIS HGB.
--- NOTE | 2019-07-21 19:25 | NUR ---
RENAL PAGED AGAIN AT THIS TIME.
--- NOTE | 2019-07-21 19:30 | NUR ---
SPOKE WITH FELICIANO GROSSMAN APN. SHE STATED "SINCE PT HAD RECIEVED THE 1 UNIT OF BLOOD AND THAT THE D/C ORDER IS STILL IN, GO AHEAD AND D/C HIM."
== END 2019-07-21 20:22 | disposition home or self-care (01) | DRG 314 ==
LOC: D.ER 07:45 → D.M2 09:09
PROVIDERS: Family Medicine; Internal Medicine Nephrology; Surgery; ADMIT Internal Medicine Nephrology; ATTEND Internal Medicine Nephrology
PROC: 05HN33Z Insertion of Infusion Device into Left Internal Jugular Vein, Percutaneous Approach (ICD-10-PCS; 2019-07-19)
PROC: B5141ZA Fluoroscopy of Left Jugular Veins using Low Osmolar Contrast, Guidance (ICD-10-PCS; 2019-07-19)
PROC: B51W1ZZ Fluoroscopy of Dialysis Shunt/Fistula using Low Osmolar Contrast (ICD-10-PCS; principal; 2019-07-19 12:30)
DX: T82.858A Stenosis of other vascular prosthetic devices, implants and grafts, initial encounter (principal); N18.6 End stage renal disease; I12.0 Hypertensive chronic kidney disease with stage 5 chronic kidney disease or end stage renal disease; Y83.9 Surgical procedure, unspecified as the cause of abnormal reaction of the patient, or of later complication, without mention of misadventure at the time of the procedure; Z99.2 Dependence on renal dialysis; D63.1 Anemia in chronic kidney disease